=== PATIENT | female | born 1965 | race Caucasian/White ===

== ENCOUNTER 2016-09-19 06:56 | Outpatient (CLI) | payer BC, OTHER | END 2016-09-19 06:57 | disposition home or self-care (01) | DX: Z00.00 Encounter for general adult medical examination without abnormal findings (principal) ==

== ENCOUNTER 2016-09-28 12:44 | Outpatient (CLI) | payer OTHER | END 2016-09-28 12:45 | disposition home or self-care (01) | DX: N63 Unspecified lump in breast (principal) ==

== ENCOUNTER 2016-10-17 08:54 | Day surgery (SDC) | payer OTHER ==
[2016-10-17] MEDS ORDERED: LACTATED RINGERS 1,000 ML IV ONE ×4 (09:40→12:06)
[2016-10-17] MEDS ORDERED: PROPOFOL 200 MG/20 ML VIAL IVP ONE (11:16)
[2016-10-17] MEDS ORDERED: fentaNYL 250 MCG/5 ML VIAL IVP ONE (11:16)
[2016-10-17] MEDS ORDERED: MIDAZOLAM 2 MG/2 ML VIAL IVP ONE (11:16)
== END 2016-10-17 08:55 | disposition home or self-care (01) ==
PROC: 0DJD8ZZ Inspection of Lower Intestinal Tract, Via Natural or Artificial Opening Endoscopic (ICD-10-PCS; principal; 2016-10-17 10:00)
DX: Z12.11 Encounter for screening for malignant neoplasm of colon (principal); Z87.891 Personal history of nicotine dependence; N92.6 Irregular menstruation, unspecified; K57.30 Diverticulosis of large intestine without perforation or abscess without bleeding; K64.8 Other hemorrhoids
CPT/HCPCS: 45378; 81025; J3010; J7120

== ENCOUNTER 2017-09-15 08:49 | Outpatient (CLI) | payer BC ==
[2017-09-15 09:12] LABS: BASOPHILS # (AUTO) 0.1 10^3/uL (0.0-0.1); BASOPHILS % (AUTO) 1.2 %; EOSINOPHILS # (AUTO) 0.1 10^3/uL (0.0-0.7); EOSINOPHILS % (AUTO) 2.8 %; LYMPHOCYTES # (AUTO) 1.5 10^3/uL (1.5-3.5); LYMPHOCYTES % (AUTO) 32.8 %; MEAN CORPUSCULAR HEMOGLOBIN 30.3 pg (27.0-31.0); MEAN CORPUSCULAR VOLUME 89.3 fL (81.0-99.0); MEAN PLATELET VOLUME 7.7 fL (7.9-10.8); MONOCYTES # (AUTO) 0.3 10^3/uL (0.0-1.0); MONOCYTES % (AUTO) 5.8 %; NEUTROPHILS # (AUTO) 2.6 10^3/uL (1.5-6.6); NEUTROPHILS % (AUTO) 57.4 %; PLT - PLATELET COUNT 236 10^3/uL (130-450); RED BLOOD COUNT 4.29 10^6/uL (4.20-5.40); RED CELL DISTRIBUTION WIDTH 13.6 % (12.0-15.0); WHITE BLOOD COUNT 4.6 x10^3/uL (4.8-10.8)
[2017-09-15 09:29] LABS: ALBUMIN 4.1 g/dL (3.2-5.5); ALBUMIN/GLOBULIN RATIO 1.3 (1.0-2.2); ALKALINE PHOSPHATASE 50 IU/L (42-121); ALT ALANINE AMINOTRANSFERASE 13 IU/L (10-60); AST ASPARTATE AMINOTRANSFERASE 16 IU/L (10-42); BILIRUBIN,TOTAL 0.6 mg/dL (0.2-1.0); BUN - BLOOD UREA NITROGEN 15 mg/dL (6-20); CALCIUM 8.9 mg/dL (8.5-10.3); CARBON DIOXIDE - CO2 25 mmol/L (21-32); CHLORIDE 99 mmol/L (101-111); CHOL/HDL RATIO 2.5 (<4.4); CHOLESTEROL 188 mg/dL; CREATININE 0.6 mg/dL (0.4-1.0); GFR - MDRD 104 (>89); GLUCOSE 117 mg/dL (70-100); HDL CHOLESTEROL 74 mg/dL; LDL CHOLESTEROL,CALCULATED 92 mg/dL; LDL/HDL RATIO 1.2 (<4.4); SODIUM 136 mmol/L (135-145); TOTAL PROTEIN 7.2 g/dL (6.7-8.2); VLDL CHOLESTEROL 22 mg/dL
[2017-09-17 13:41] LABS: HEPATITIS C ANTIBODY NON-REACTIVE (NON-REACTIVE)
== END 2017-09-15 08:50 | disposition home or self-care (01) ==
LOC: LAB 08:49
PROVIDERS: ATTEND Physician Assistant Medical
DX: Z00.00 Encounter for general adult medical examination without abnormal findings (principal); Z11.59 Encounter for screening for other viral diseases; Z72.89 Other problems related to lifestyle
CPT/HCPCS: 36415; 80053; 80061; 83721; 84443; 85025; 86803

== ENCOUNTER 2017-09-20 16:16 | Outpatient (CLI) | payer BC ==
--- NOTE | 2017-09-21 13:11 | XRAY Report ---
TWO VIEW CHEST: 09/20/2017 CLINICAL INDICATION: Bronchitis. FINDINGS: Frontal and lateral views of the chest demonstrate a normal cardiac silhouette. The lungs are clear. No effusion or pneumothorax is present. IMPRESSION: NORMAL CHEST. TD: 09/21/2017 13:09
== END 2017-09-20 16:17 | disposition home or self-care (01) ==
LOC: DI 16:16
PROVIDERS: ATTEND Physician Assistant Medical
DX: J20.9 Acute bronchitis, unspecified (principal)
CPT/HCPCS: 71046

== ENCOUNTER 2017-12-27 14:27 | Outpatient (CLI) | payer BC ==
--- NOTE | 2017-12-27 17:44 | Ultrasound Report ---
LEFT BREAST ULTRASOUND: 12/27/2017 CLINICAL INDICATION: Palpable abnormality. TECHNIQUE: Real-time scanning was performed with retail field representative static images obtained. FINDINGS: Ultrasound of the palpable abnormality identified by the patient was performed. Unremarkable parenchymal lobules are seen. No discrete solid or cystic mass is identified. No sonographically suspicious findings are appreciated. IMPRESSION: NEGATIVE EXAMINATION. RECOMMENDATION: Routine annual screening unless otherwise clinically indicated. BI-RADS category 1 negative. TD: 12/27/2017 15:41
--- NOTE | 2017-12-27 17:47 | Mammography Report ---
DIGITAL DIAGNOSTIC BILATERAL MAMMOGRAM: 12/27/2017 CLINICAL INDICATION: Palpable abnormality left breast. TECHNIQUE: Bilateral CC and MLO, left true lateral view. COMPARISON: 09/28/2016, 04/23/2013, 12/11/2011, 09/17/2010. FINDINGS: The breasts again demonstrate heterogeneously dense fibroglandular parenchyma bilaterally. No suspicious masses, clustered microcalcifications, or regions of architectural distortion are identified. Specifically, no mammographic abnormality is appreciated in the left outer breast, at the site indicated by the marker. Please also refer to left breast ultrasound of the same day. IMPRESSION: NEGATIVE EXAMINATION. RECOMMENDATION: Routine annual screening unless otherwise clinically indicated. BI-RADS category 1 negative. STANDARD QUALIFYING STATEMENTS 1. This examination was reviewed with the aid of Computed-Aided Detection (CAD). 2. A negative or benign imaging report should not delay biopsy if clinically suspicious findings are present. Consider surgical consultation if warranted. More than 5% of cancers are not identified by imaging. 3. Dense breasts may obscure an underlying neoplasm. TD: 12/27/2017 15:43
== END 2017-12-27 14:28 | disposition home or self-care (01) ==
LOC: DI 14:27
PROVIDERS: ATTEND Physician Assistant Medical
DX: N64.9 Disorder of breast, unspecified (principal)
CPT/HCPCS: 76642; 77066

== ENCOUNTER 2019-10-01 17:09 | Outpatient (CLI) | payer OTHER ==
--- NOTE | 2019-10-02 10:57 | XRAY Report ---
Reason: PAIN IN RIGHT SHOULDER Procedure Date: 10/01/2019 Accession Number: [id number] / [id number] Procedure: XR - Shoulder 3 View RT CPT Code: Final Report FULL RESULT: EXAM: RIGHT SHOULDER RADIOGRAPHY, 3 views EXAM DATE: 10/01/2019 05:28 PM. CLINICAL HISTORY: Pain in right shoulder in a 54-year-old female. COMPARISON: None. TECHNIQUE: AP, Grashey and Y views. FINDINGS: Bones: Normal. No fracture or bone lesion. Joints: The glenohumeral and acromioclavicular joints are normal. Soft tissues: The visualized hemithorax is unremarkable. No soft tissue swelling. Other: Visualized chest unremarkable. IMPRESSION: Normal examination. No degenerative arthritis or other demonstrated cause for the patient's symptoms. RADIA
== END 2019-10-01 17:10 | disposition home or self-care (01) ==
LOC: DI 17:09
PROVIDERS: ATTEND Nurse Practitioner
DX: M25.511 Pain in right shoulder (principal)

== ENCOUNTER 2020-03-29 08:42 | Outpatient (CLI) | payer OTHER ==
[2020-03-29 08:53] LABS: BASOPHILS # (AUTO) 0.1 10^3/uL (0.0-0.1); BASOPHILS % (AUTO) 1.1 %; EOSINOPHILS # (AUTO) 0.1 10^3/uL (0.0-0.7); EOSINOPHILS % (AUTO) 2.8 %; HGB - HEMOGLOBIN 13.3 g/dL (12.0-16.0); LYMPHOCYTES # (AUTO) 1.5 10^3/uL (1.5-3.5); LYMPHOCYTES % (AUTO) 32.4 %; MEAN CORPUSCULAR HGB CONC 32.2 g/dL (32.0-36.0); MEAN CORPUSCULAR VOLUME 93.2 fL (81.0-99.0); MEAN PLATELET VOLUME 9.6 fL (7.9-10.8); MONOCYTES # (AUTO) 0.3 10^3/uL (0.0-1.0); MONOCYTES % (AUTO) 6.1 %; NEUTROPHILS # (AUTO) 2.6 10^3/uL (1.5-6.6); NEUTROPHILS % (AUTO) 57.4 %; PLT - PLATELET COUNT 246 10^3/uL (130-450); RED BLOOD COUNT 4.43 10^6/uL (4.20-5.40); RED CELL DISTRIBUTION WIDTH 12.9 % (12.0-15.0); WHITE BLOOD COUNT 4.6 x10^3/uL (4.8-10.8)
[2020-03-29 09:13] LABS: ALBUMIN 4.6 g/dL (3.2-5.5); ALBUMIN/GLOBULIN RATIO 1.6 (1.0-2.2); ALKALINE PHOSPHATASE 61 IU/L (42-121); ALT ALANINE AMINOTRANSFERASE 14 IU/L (10-60); AST ASPARTATE AMINOTRANSFERASE 17 IU/L (10-42); BILIRUBIN,TOTAL 0.7 mg/dL (0.2-1.0); BUN - BLOOD UREA NITROGEN 14 mg/dL (6-20); CALCIUM 9.4 mg/dL (8.5-10.3); CARBON DIOXIDE - CO2 30 mmol/L (21-32); CHLORIDE 102 mmol/L (101-111); CHOL/HDL RATIO 2.4 (<4.4); CHOLESTEROL 207 mg/dL; CREATININE 0.5 mg/dL (0.4-1.0); GLUCOSE 106 mg/dL (70-100); HDL CHOLESTEROL 85 mg/dL; LDL CHOLESTEROL,CALCULATED 87 mg/dL; SODIUM 140 mmol/L (135-145); TOTAL PROTEIN 7.4 g/dL (6.7-8.2); VLDL CHOLESTEROL 35 mg/dL
== END 2020-03-29 08:43 | disposition home or self-care (01) ==
LOC: LAB 08:42
PROVIDERS: ATTEND Nurse Practitioner
DX: Z00.00 Encounter for general adult medical examination without abnormal findings (principal); R73.9 Hyperglycemia, unspecified; Z79.899 Other long term (current) drug therapy
CPT/HCPCS: 36415; 80053; 80061; 83721; 84443; 85025

== ENCOUNTER 2020-04-28 15:36 | Outpatient (CLI) | payer OTHER ==
--- NOTE | 2020-04-29 13:38 | Mammography Report ---
BILATERAL DIGITAL SCREENING MAMMOGRAM 3D/2D: 04/28/2020 CLINICAL: Routine screening. Comparison is made to exams dated: 12/27/2017 mammogram, 09/28/2016 mammogram, 04/23/2013 mammogram, 12/11/2011 mammogram, 09/17/2010 mammogram, and 12/27/2017 ultrasound - [facility]. The tissue of both breasts is heterogeneously dense. This may lower the sensitivity of mammography. There is an oval equal density asymmetry with an obscured and circumscribed margin in the left breast posterior depth lateral region seen on the craniocaudal view only. No other significant masses, calcifications, or other findings are seen in either breast. IMPRESSION: INCOMPLETE: NEEDS ADDITIONAL IMAGING EVALUATION The oval equal density asymmetry in the left breast is indeterminate. Mediolateral and spot compress ion views as well as additional views with possible ultrasound are recommended. This exam was interpreted at Station ID: [id number]. NOTE: For mammograms, a report in lay terms will be sent to the patient. Approximately 15% of breast malignancies will not be visualized mammographically. In the management of a palpable breast mass, a negative mammogram must not discourage biopsy of a clinically suspicious lesion. Electronically Signed By: Ian English M.D. ddp/penrad:04/28/2020 16:45:10 ACR BI-RADS Category 0: Incomplete 3340F PARENCHYMAL PATTERN: (D) - The breast(s) demonstrate(s) heterogeneously dense fibroglandular kwesi rosado. BI-RADS CATEGORY: (0) - 0 Mammo and [place] [id number] Immediate follow-up LATERALITY: (B)
== END 2020-04-28 15:37 | disposition home or self-care (01) ==
LOC: DI 15:36
PROVIDERS: ATTEND Nurse Practitioner
DX: Z12.31 Encounter for screening mammogram for malignant neoplasm of breast (principal); R92.8 Other abnormal and inconclusive findings on diagnostic imaging of breast
CPT/HCPCS: 77063; 77067

== ENCOUNTER 2020-06-02 08:18 | Outpatient (CLI) | payer OTHER ==
--- NOTE | 2020-06-03 15:24 | Mammography Report ---
UNILATERAL LEFT DIGITAL DIAGNOSTIC MAMMOGRAM 3D/2D: 06/02/2020 CLINICAL: Patient returns today to evaluate a focal asymmetry in the left breast. Comparison is made to exams dated: 04/28/2020 mammogram, 12/27/2017 mammogram, 12/27/2017 ultrasound, ultrasound, 09/28/2016 mammogram, and 04/23/2013 mammogram - [facility]. Th e tissue of left breast is heterogeneously dense. This may lower the sensitivity of mammography. There is an 8 mm oval low density asymmetry with a circumscribed margin in the left breast middle dep th lateral region seen on the craniocaudal view only. This is confirmed with spot compression. No other significant masses or calcifications are seen in the breast. IMPRESSION: INCOMPLETE: NEEDS ADDITIONAL IMAGING EVALUATION The 8 mm oval low density asymmetry in the left breast most likely is a cyst or a fibroadenoma but re bruce indeterminate. An ultrasound is recommended. This was performed immediately following this ex am. This exam was interpreted at Station ID: [id number]. NOTE: For mammograms, a report in lay terms will be sent to the patient. Approximately 15% of breast malignancies will not be visualized mammographically. In the management of a palpable breast mass, a negative mammogram must not discourage biopsy of a clinically suspicious lesion. Electronically Signed By: Nicolle baig/:06/02/2020 08:54:58 ACR BI-RADS Category 0: Incomplete 3340F PARENCHYMAL PATTERN: (D) - The breast(s) demonstrate(s) heterogeneously dense fibroglandular kwesi rosado. BI-RADS CATEGORY: (0) - 0 Ultrasound [id number] Immediate follow-up LATERALITY: (B)
--- NOTE | 2020-06-03 15:24 | Ultrasound Report ---
LIMITED ULTRASOUND OF LEFT BREAST: 06/02/2020 CLINICAL: Patient returns today to evaluate asymmetry in left breast. Comparison is made to exams dated: 06/02/2020 mammogram, 04/28/2020 mammogram, 12/27/2017 mammogram, ultrasound, 09/28/2016 ultrasound, and 09/28/2016 mammogram - [facility]. Color flow and real-time ultrasound of the left breast 2 o'clock region were performed. Power scale images of the real-time examination were reviewed. There is a benign 0.8 cm x 0.5 cm x 0.6 cm oval normal lymph node in the left breast at 2 o'clock pos terior depth 10 cm from the nipple. This oval normal lymph node displays fatty hilum. This correlat es with mammography findings. Color flow imaging demonstrates that there is no vascularity present. IMPRESSION: BENIGN There is no sonographic evidence of malignancy. The 0.8 cm oval normal lymph node in the left breast is benign. Return to annual mammogram screening schedule is recommended. Findings and recommendations were conveyed to the patient at time of exam. This exam was interpreted at Station ID: [id number]. Electronically Signed By: Nicolle baig/:06/02/2020 11:48:55 Ultrasound BI-RADS: 2 Benign BI-RADS CATEGORY: (2) - 2 Mammogram [id number] return to screening LATERALITY: (B)
== END 2020-06-02 08:19 | disposition home or self-care (01) ==
LOC: DI 08:18
PROVIDERS: ATTEND Nurse Practitioner
DX: R92.8 Other abnormal and inconclusive findings on diagnostic imaging of breast (principal)
CPT/HCPCS: 76642

== ENCOUNTER 2021-06-06 14:30 | Outpatient (CLI) | payer OTHER ==
[2021-06-06 18:08] LABS: BASOPHILS # (AUTO) 0.1 10^3/uL (0.0-0.1); EOSINOPHILS # (AUTO) 0.1 10^3/uL (0.0-0.7); EOSINOPHILS % (AUTO) 1.4 %; HCT - HEMATOCRIT 39.3 % (37.0-47.0); HGB - HEMOGLOBIN 12.7 g/dL (12.0-16.0); LYMPHOCYTES # (AUTO) 1.8 10^3/uL (1.5-3.5); LYMPHOCYTES % (AUTO) 35.1 %; MEAN CORPUSCULAR HEMOGLOBIN 30.2 pg (27.0-31.0); MEAN CORPUSCULAR HGB CONC 32.3 g/dL (32.0-36.0); MEAN CORPUSCULAR VOLUME 93.3 fL (81.0-99.0); MEAN PLATELET VOLUME 10.8 fL (7.9-10.8); MONOCYTES # (AUTO) 0.3 10^3/uL (0.0-1.0); MONOCYTES % (AUTO) 6.4 %; NEUTROPHILS # (AUTO) 2.8 10^3/uL (1.5-6.6); NEUTROPHILS % (AUTO) 55.7 %; PLT - PLATELET COUNT 280 10^3/uL (130-450); RED BLOOD COUNT 4.21 10^6/uL (4.20-5.40); RED CELL DISTRIBUTION WIDTH 13.1 % (12.0-15.0)
[2021-06-06 18:33] LABS: ALBUMIN 4.6 g/dL (3.2-5.5); ALBUMIN/GLOBULIN RATIO 1.7 (1.0-2.2); ALKALINE PHOSPHATASE 63 IU/L (42-121); ALT ALANINE AMINOTRANSFERASE 19 IU/L (10-60); AST ASPARTATE AMINOTRANSFERASE 20 IU/L (10-42); BILIRUBIN,TOTAL 0.8 mg/dL (0.2-1.0); BUN - BLOOD UREA NITROGEN 12 mg/dL (6-20); CALCIUM 9.6 mg/dL (8.5-10.3); CARBON DIOXIDE - CO2 30 mmol/L (21-32); CHLORIDE 102 mmol/L (101-111); CHOL/HDL RATIO 2.6 (<4.4); CHOLESTEROL 190 mg/dL; CREATININE 0.6 mg/dL (0.4-1.0); GFR - MDRD 103 (>89); GLUCOSE 80 mg/dL (70-100); HDL CHOLESTEROL 74 mg/dL; LDL CHOLESTEROL,CALCULATED 98 mg/dL; LDL/HDL RATIO 1.3 (<4.4); SODIUM 141 mmol/L (135-145); TOTAL PROTEIN 7.3 g/dL (6.7-8.2); TRIGLYCERIDES 92 mg/dL; VLDL CHOLESTEROL 18 mg/dL
[2021-06-06 18:45] LABS: THYROID STIMULATING HORMONE 1.4 uIU/mL (0.34-5.60)
== END 2021-06-06 23:59 | disposition home or self-care (01) ==
LOC: LAB.WCP 14:30
PROVIDERS: ATTEND Family Medicine
DX: R73.9 Hyperglycemia, unspecified (principal); N95.1 Menopausal and female climacteric states; G43.909 Migraine, unspecified, not intractable, without status migrainosus
CPT/HCPCS: 36415; 80053; 80061; 83721; 84443; 85025

== ENCOUNTER 2022-03-03 15:03 | Outpatient (CLI) | payer OTHER ==
--- NOTE | 2022-03-03 16:27 | XRAY Report ---
PROCEDURE: Ankle 3 View LT INDICATIONS: ANKLE PAIN,LEFT TECHNIQUE: 3 views of the ankle were acquired. COMPARISON: None FINDINGS: Bones: No fractures or dislocations. Ankle mortise is normally aligned. No suspicious bony lesions . Mild periareolar articular osteophyte formation at the tibiotalar joint. Soft tissues: No tibiotalar joint effusion. Achilles tendon appears normal. IMPRESSION: 1. Osteoarthritis. 2. No acute fracture. No osseous lesion. If symptoms and/or clinical suspicion for pathology continue , further assessment with repeat plain films, or advanced imaging (e.g., CT, MRI, or bone scan) is re commended for further assessment. Reviewed by: Natacha Anthony MD on 03/03/2022 4:25 PM PDT Approved by: Natacha Anthony MD on 03/03/2022 4:25 PM PDT Station ID: [id number]
== END 2022-03-03 15:04 | disposition home or self-care (01) ==
LOC: DI 15:03
PROVIDERS: ATTEND Physician Assistant
DX: M19.072 Primary osteoarthritis, left ankle and foot (principal)

== ENCOUNTER 2023-01-31 13:03 | Outpatient (CLI) | payer OTHER ==
--- NOTE | 2023-02-01 09:25 | Mammography Report ---
BILATERAL DIGITAL SCREENING MAMMOGRAM 3D/2D: 01/31/2023 CLINICAL: Routine screening. Comparison is made to exams dated: 06/02/2020 mammogram, 04/28/2020 mammogram, 12/27/2017 mammogram, mammogram, and 04/23/2013 mammogram - [facility]. Both breasts are heterogeneously dense, which may obscure small masses (category c / 51-75% glandular tissue). There is a possible equal density focal asymmetry in the left breast central to the nipple anterior d epth. This is more prominent. No other significant masses, calcifications, or other findings are seen in either breast. IMPRESSION: INCOMPLETE: NEEDS ADDITIONAL IMAGING EVALUATION The possible equal density focal asymmetry in the left breast is indeterminate. Additional views wit h possible ultrasound are recommended. Based on the Tyrer Cuzick model (a risk assessment model) the patients lifetime risk is 17.3% and he r 10 year risk is 6.9%. According to the ACR, ACS, and NCCN guidelines, an annual breast MRI exam kaylah ng with mammogram is recommended if the patients lifetime risk is 20% or greater. This exam was interpreted at Station ID: [id number]. NOTE: For mammograms, a report in lay terms will be sent to the patient. Approximately 15% of breast malignancies will not be visualized mammographically. In the management of a palpable breast mass, a negative mammogram must not discourage biopsy of a clinically suspicious lesion. Electronically Signed By: Jassi Cleveland M.D. aty/:01/31/2023 17:08:29 ACR BI-RADS Category 0: Incomplete 3340F PARENCHYMAL PATTERN: (D) - The breast(s) demonstrate(s) heterogeneously dense fibroglandular parlola rosado. BI-RADS CATEGORY: (0) - 0 Mammo and [place] [id number] Immediate follow-up LATERALITY: (L)
== END 2023-01-31 13:04 | disposition home or self-care (01) ==
LOC: DI 13:03
DX: Z12.31 Encounter for screening mammogram for malignant neoplasm of breast (principal); R92.8 Other abnormal and inconclusive findings on diagnostic imaging of breast

== ENCOUNTER 2023-02-19 12:26 | Outpatient (CLI) | payer OTHER ==
--- NOTE | 2023-02-20 10:21 | Ultrasound Report ---
LIMITED ULTRASOUND OF LEFT BREAST: 02/19/2023 CLINICAL: Patient returns today to evaluate a focal asymmetry in the left breast. No prior exams were available for comparison. Ultrasound of the left breast 3 o'clock, 6 o'clock, 9 o'clock, 12 o'clock, and retroareolar regions was performed. Power scale images of the real-time examination were reviewed. No significant abnormalities were seen sonographically in the left breast. IMPRESSION: NEGATIVE There is no sonographic evidence of malignancy. There is no abnormality seen in the left breast to correspond with the mammography finding which like ly represents normal fibroglandular tissue. Return to annual mammogram screening schedule is recommended. This exam was interpreted at Station ID: [id number]. Electronically Signed By: Acosta Leong M.D. lc/:02/19/2023 13:17:34 letter sent: No_Letter Ultrasound BI-RADS: 1 Negative BI-RADS CATEGORY: (1) - 1 Mammogram [id number] return to screening LATERALITY: (B)
--- NOTE | 2023-02-20 10:21 | Mammography Report ---
UNILATERAL LEFT DIGITAL DIAGNOSTIC MAMMOGRAM 3D/2D WITH SPOT COMPRESSION: 02/19/2023 CLINICAL: Patient returns today to evaluate a focal asymmetry in the left breast. Comparison is made to exams dated: 01/31/2023 mammogram, 06/02/2020 mammogram, 04/28/2020 mammogram, mammogram, 09/28/2016 mammogram, and 04/23/2013 mammogram - [facility]. The left breast is heterogeneously dense, which may obscure small masses (category c / 51-75% glandul ar tissue). There is a possible equal density focal asymmetry in the left breast central to the nipple anterior d epth. No other significant masses or calcifications are seen in the breast. IMPRESSION: INCOMPLETE: NEEDS ADDITIONAL IMAGING EVALUATION The possible equal density focal asymmetry in the left breast is indeterminate. An ultrasound is rec ommended. Based on the Tyrer Cuzick model (a risk assessment model) the patients lifetime risk is 17.3% and he r 10 year risk is 6.9%. According to the ACR, ACS, and NCCN guidelines, an annual breast MRI exam kaylah ng with mammogram is recommended if the patients lifetime risk is 20% or greater. This exam was interpreted at Station ID: [id number]. NOTE: For mammograms, a report in lay terms will be sent to the patient. Approximately 15% of breast malignancies will not be visualized mammographically. In the management of a palpable breast mass, a negative mammogram must not discourage biopsy of a clinically suspicious lesion. Electronically Signed By: Acosta Leong M.D. lc/:02/19/2023 13:16:41 ACR BI-RADS Category 0: Incomplete 3340F PARENCHYMAL PATTERN: (D) - The breast(s) demonstrate(s) heterogeneously dense fibroglandular parenchy ma. BI-RADS CATEGORY: (0) - 0 Ultrasound [id number] Immediate follow-up LATERALITY: (B)
== END 2023-02-19 12:27 | disposition home or self-care (01) ==
LOC: DI 12:26
PROVIDERS: ATTEND Nurse Practitioner
DX: R92.8 Other abnormal and inconclusive findings on diagnostic imaging of breast (principal)

== ENCOUNTER 2023-03-07 13:42 | Outpatient (CLI) | payer OTHER ==
[2023-03-07 14:02] LABS: BASOPHILS # (AUTO) 0.1 10^3/uL (0.0-0.1); BASOPHILS % (AUTO) 1.5 %; EOSINOPHILS # (AUTO) 0.1 10^3/uL (0.0-0.7); EOSINOPHILS % (AUTO) 2.7 %; HCT - HEMATOCRIT 39.5 % (37.0-47.0); LYMPHOCYTES % (AUTO) 41.6 %; MEAN CORPUSCULAR HEMOGLOBIN 30.2 pg (27.0-31.0); MEAN CORPUSCULAR HGB CONC 32.9 g/dL (32.0-36.0); MEAN CORPUSCULAR VOLUME 91.6 fL (81.0-99.0); MONOCYTES # (AUTO) 0.3 10^3/uL (0.0-1.0); MONOCYTES % (AUTO) 5.5 %; NEUTROPHILS # (AUTO) 2.3 10^3/uL (1.5-6.6); NEUTROPHILS % (AUTO) 48.5 %; PLT - PLATELET COUNT 248 10^3/uL (130-450); RED BLOOD COUNT 4.31 10^6/uL (4.20-5.40); WHITE BLOOD COUNT 4.7 x10^3/uL (4.8-10.8)
[2023-03-07 14:34] LABS: THYROID STIMULATING HORMONE 1.06 uIU/mL (0.34-5.60)
[2023-03-07 14:54] LABS: ALBUMIN 4.5 g/dL (3.2-5.5); ALBUMIN/GLOBULIN RATIO 1.7 (1.0-2.2); ALKALINE PHOSPHATASE 73 IU/L (42-121); ALT ALANINE AMINOTRANSFERASE 15 IU/L (10-60); AST ASPARTATE AMINOTRANSFERASE 17 IU/L (10-42); BILIRUBIN,TOTAL 0.6 mg/dL (0.2-1.0); BUN - BLOOD UREA NITROGEN 13 mg/dL (6-20); CALCIUM 9.6 mg/dL (8.5-10.3); CARBON DIOXIDE - CO2 30 mmol/L (21-32); CHLORIDE 104 mmol/L (101-111); CHOL/HDL RATIO 2.3 (<4.4); CHOLESTEROL 194 mg/dL; CREATININE 0.7 mg/dL (0.6-1.3); GFR - MDRD 86 (>89); GLUCOSE 90 mg/dL (74-104); HDL CHOLESTEROL 83 mg/dL; LDL CHOLESTEROL,CALCULATED 84 mg/dL; POTASSIUM 3.7 mmol/L (3.5-4.5); SODIUM 139 mmol/L (135-145); TOTAL PROTEIN 7.2 g/dL (6.4-8.9); TRIGLYCERIDES 137 mg/dL (48-352); VLDL CHOLESTEROL 27 mg/dL
== END 2023-03-07 13:43 | disposition home or self-care (01) ==
LOC: LAB 13:42
PROVIDERS: ATTEND Nurse Practitioner
DX: R53.83 Other fatigue (principal); R92.8 Other abnormal and inconclusive findings on diagnostic imaging of breast; Z13.220 Encounter for screening for lipoid disorders
CPT/HCPCS: 36415; 80053; 80061; 83721; 84443; 85025

== ENCOUNTER 2024-03-17 12:05 | Outpatient (CLI) | payer OTHER ==
[2024-03-17 18:02] LABS: BASOPHILS # (AUTO) 0.1 10^3/uL (0.0-0.1); BASOPHILS % (AUTO) 1.1 %; EOSINOPHILS # (AUTO) 0.1 10^3/uL (0.0-0.7); EOSINOPHILS % (AUTO) 2.5 %; HCT - HEMATOCRIT 43.4 % (37.0-47.0); HGB - HEMOGLOBIN 13.7 g/dL (12.0-16.0); LYMPHOCYTES % (AUTO) 36.6 %; MEAN CORPUSCULAR HEMOGLOBIN 29.3 pg (27.0-31.0); MEAN CORPUSCULAR HGB CONC 31.6 g/dL (32.0-36.0); MEAN CORPUSCULAR VOLUME 92.7 fL (81.0-99.0); MEAN PLATELET VOLUME 10.8 fL (7.9-10.8); MONOCYTES # (AUTO) 0.3 10^3/uL (0.0-1.0); MONOCYTES % (AUTO) 5.7 %; NEUTROPHILS % (AUTO) 53.9 %; PLT - PLATELET COUNT 274 10^3/uL (130-450); RED BLOOD COUNT 4.68 10^6/uL (4.20-5.40); RED CELL DISTRIBUTION WIDTH 13.5 % (12.0-15.0); WHITE BLOOD COUNT 5.6 x10^3/uL (4.8-10.8)
[2024-03-17 18:23] LABS: ALBUMIN 4.6 g/dL (3.2-5.5); ALBUMIN/GLOBULIN RATIO 1.6 (1.0-2.2); ALKALINE PHOSPHATASE 67 IU/L (42-121); ALT ALANINE AMINOTRANSFERASE 12 IU/L (10-60); AST ASPARTATE AMINOTRANSFERASE 17 IU/L (10-42); BILIRUBIN,TOTAL 0.6 mg/dL (0.2-1.0); BUN - BLOOD UREA NITROGEN 10 mg/dL (6-20); CALCIUM 10.1 mg/dL (8.5-10.3); CARBON DIOXIDE - CO2 31 mmol/L (21-32); CHLORIDE 102 mmol/L (101-111); CHOL/HDL RATIO 2.3 (<4.4); CHOLESTEROL 218 mg/dL; CREATININE 0.7 mg/dL (0.6-1.3); GFR - MDRD 85 (>89); GLUCOSE 86 mg/dL (74-104); HDL CHOLESTEROL 94 mg/dL; LDL CHOLESTEROL,CALCULATED 96 mg/dL; POTASSIUM 3.9 mmol/L (3.5-4.5); SODIUM 138 mmol/L (135-145); TOTAL PROTEIN 7.4 g/dL (6.4-8.9); TRIGLYCERIDES 141 mg/dL; VLDL CHOLESTEROL 28 mg/dL
[2024-03-17 18:36] LABS: THYROID STIMULATING HORMONE 1.21 uIU/mL (0.34-5.60)
== END 2024-03-17 12:06 | disposition home or self-care (01) ==
LOC: LAB.N 12:05
PROVIDERS: ATTEND Nurse Practitioner
DX: R53.83 Other fatigue (principal); Z13.220 Encounter for screening for lipoid disorders
CPT/HCPCS: 36415; 80053; 80061; 83721; 84443; 85025